=== PATIENT | female | born 1990 | race Two or more races ===

== ENCOUNTER 2021-02-02 17:41 | Emergency (ER) | payer OTHER ==
[~2021-02-02] VITALS: Ht 170.2 cm; Wt 62.6 kg
[2021-02-02 17:50] VITALS: BP 133/76
--- NOTE | 2021-02-02 18:01 | NUR ---
BIBS W/ FRIEND FROM HOME TO ER BED 16. AAOX4. NOT IN RESP DISTRESS. AMBULATORY. CAME IN FOR ANXIETY AND PALPITATION. PER PT, SHE STARTED FEELING ANXIOUS AND HAD PALPITATION. CAME IN FOR CONCERN OF HER HEART. PROVIDER WAS AT THE BEDSSIDE FOR EVAL. ORDERS RECEIVED, NOTED AND CARRIED OUT. URINE BEING COLLECTED FROM PT.
--- NOTE | 2021-02-02 18:48 | NUR ---
Patient discharged to home in stable condition. Written and verbal after care instructions given. Patient verbalizes understanding of instruction.
== END 2021-02-02 18:49 | disposition home or self-care (01) ==
LOC: ER 17:42
DX: F41.9 Anxiety disorder, unspecified (principal); F17.200 Nicotine dependence, unspecified, uncomplicated; R00.0 Tachycardia, unspecified
CPT/HCPCS: 84703-TC

== ENCOUNTER 2021-02-05 14:57 | Emergency (ER) | payer OTHER ==
[~2021-02-05] VITALS: Ht 170.2 cm; Wt 62.6 kg
--- NOTE | 2021-02-05 15:00 | NUR ---
THE PATIENT BIBS FOR C/O ON/OFF CHEST PAIN SINCE 02/02/21, MIDSTERNAL RADIATES TO HER BACK AND LEFT ARM. RATES PAIN 7/10. IN ROOM AIR AND DENIES SOB. RESPIRATION REGULAR AND UNLABORED. ATTACHED ON MONITOR. WILL CONTINUE TO MONITOR THE PATIENT.
[2021-02-05 16:32] LABS: BASOPHILS % (AUTO) 0.4 % (0.0-2.0); EOSINOPHILS % (AUTO) 0.2 % (0.0-6.0); HEMATOCRIT 39 % (33-45); HEMOGLOBIN 13.6 g/dL (11.5-14.8); LYMPHOCYTES % (AUTO) 41.8 % (20.0-44.0); MEAN CORPUSCULAR HGB CONC 35 g/dl (31.0-36.0); MEAN CORPUSCULAR VOLUME 98 fL (82-100); MONOCYTES # (AUTO) 0.6 /CMM (0.1-1.30); MONOCYTES % (AUTO) 7.8 % (2.0-12.0); NEUTROPHILS # (AUTO) 3.6 /CMM (1.8-8.9); NEUTROPHILS % (AUTO) 49.8 % (43.0-81.0); PLATELET COUNT (AUTO) 266 /CMM (150-450); RED BLOOD CELL COUNT(AUTO) 4.01 MIL/uL (4.0-5.2); WHITE BLOOD COUNT (AUTO) 7.3 K/uL (4.3-11.0)
[2021-02-05 16:40] LABS: CALCIUM, SERUM 9.7 mg/dL (8.5-10.1); CARBON DIOXIDE 22 mmol/L (21-32); CHLORIDE 102 mmol/L (98-107); CREATININE 0.7 mg/dL (0.6-1.3); GLUCOSE 90 mg/dL (74-106); POTASSIUM 3.3 mmol/L (3.5-5.1); SODIUM SERUM 139 mmol/L (136-145); UREA NITROGEN, BLOOD 6 mg/dL (7-18)
[2021-02-05] MEDS ORDERED: POTASSIUM CHLORIDE 20 MEQ TAB.PRT.SR PO ONE ×2 (17:30→17:44)
--- NOTE | 2021-02-05 18:52 | NUR ---
Patient discharged to home in stable condition. Written and verbal after care instructions given. Patient verbalizes understanding of instruction.IV removed. Catheter intact and site benign. Pressure and 4x4 applied to site. No bleeding noted.
[2021-02-05 18:53] VITALS: BP 135/66
== END 2021-02-05 18:53 | disposition home or self-care (01) ==
LOC: ER 15:00
DX: F41.9 Anxiety disorder, unspecified (principal); E87.6 Hypokalemia; F17.200 Nicotine dependence, unspecified, uncomplicated
CPT/HCPCS: 36415; 71045-TC; 80048-TC; 83735-TC; 84484-TC; 85025-TC; 85378-TC

== ENCOUNTER 2021-09-05 12:46 | Emergency (ER) | payer OTHER ==
[~2021-09-05] VITALS: Ht 170.2 cm; Wt 61.2 kg
--- NOTE | 2021-09-05 14:10 | NUR ---
BIBSELF C/O RIGHT THIGH REDNESS/RASH S/P INSECT/BUG BITE X3DAYS. DENIES PAIN. NO S/S INFECTION NOTED. WILL CONTINUE TO MONITOR THE PATIENT.
[2021-09-05 14:12] VITALS: BP 117/73
--- NOTE | 2021-09-05 14:13 | NUR ---
Patient discharged to home in stable condition. Written and verbal after care instructions given. Patient verbalizes understanding of instruction. PT ambulatory with a steady gait
== END 2021-09-05 14:13 | disposition home or self-care (01) ==
LOC: ER 12:52
DX: S70.361A Insect bite (nonvenomous), right thigh, initial encounter (principal); F41.9 Anxiety disorder, unspecified; W57.XXXA Bitten or stung by nonvenomous insect and other nonvenomous arthropods, initial encounter; Y93.89 Activity, other specified; Y92.89 Other specified places as the place of occurrence of the external cause; Y99.8 Other external cause status

== ENCOUNTER 2023-09-09 15:49 | Emergency (ER) | payer SELFPAY ==
[~2023-09-09] VITALS: Ht 170.2 cm; Wt 63.5 kg
[2023-09-09] MEDS ORDERED: ACETAMINOPHEN 325 MG TABLET ONE (16:40)
[2023-09-09] MEDS ORDERED: IBUPROFEN 600 MG TABLET ONE (16:41)
[2023-09-09] MEDS ORDERED: ACETAMINOPHEN 325 MG TABLET PO ONE (17:00)
[2023-09-09] MEDS ORDERED: IBUPROFEN 600 MG TABLET PO ONE (17:00)
[2023-09-09] MEDS ORDERED: IBUP-1955 PO (17:08)
[2023-09-09 17:50] VITALS: BP 102/67; TEMP 98; O2SAT 100
== END 2023-09-09 17:51 | disposition home or self-care (01) ==
LOC: ER 15:51
DX: S93.491A Sprain of other ligament of right ankle, initial encounter (principal); F41.9 Anxiety disorder, unspecified; F17.200 Nicotine dependence, unspecified, uncomplicated; Z79.899 Other long term (current) drug therapy; W17.89XA Other fall from one level to another, initial encounter; Y93.89 Activity, other specified; Y92.89 Other specified places as the place of occurrence of the external cause; Y99.8 Other external cause status
CPT/HCPCS: 73610-TC

== ENCOUNTER 2024-11-15 15:12 | Emergency (ER) | payer MEDICAID ==
[~2024-11-15] VITALS: Ht 170.2 cm; Wt 61.2 kg
[~2024-11-15 15:12] MED LIST: IBUP-1955 PO
[2024-11-15] MEDS ORDERED: IBUP-1490 PO (19:09)
[2024-11-15 19:15] VITALS: BP 116/70; TEMP 98.5; O2SAT 99
== END 2024-11-15 19:16 | disposition home or self-care (01) ==
LOC: ER 16:00
DX: R07.89 Other chest pain (principal); R53.1 Weakness; R11.0 Nausea; F17.200 Nicotine dependence, unspecified, uncomplicated; F41.9 Anxiety disorder, unspecified

== ENCOUNTER 2025-03-05 13:46 | Emergency (ER) | payer MEDICAID ==
[~2025-03-05] VITALS: Ht 170.2 cm; Wt 62.6 kg
[~2025-03-05 13:46] MED LIST changes: +IBUP-1490 PO
[2025-03-05 14:41] VITALS: BP 108/78; TEMP 98.8; O2SAT 98
== END 2025-03-05 14:42 | disposition home or self-care (01) ==
LOC: ER 13:49
DX: F41.9 Anxiety disorder, unspecified (principal); F17.200 Nicotine dependence, unspecified, uncomplicated; R06.02 Shortness of breath; R07.9 Chest pain, unspecified; R20.0 Anesthesia of skin; R20.2 Paresthesia of skin
CPT/HCPCS: 71045-TC